=== PATIENT | male | born 1985 | race Caucasian/White ===

== ENCOUNTER 2016-09-17 04:09 | Emergency (ER) | payer OTHER | END 2016-09-17 04:47 | disposition JHC | LOC: CED 04:09 | DX: L03.021 Acute lymphangitis of right finger (principal); B19.20 Unspecified viral hepatitis C without hepatic coma; F17.210 Nicotine dependence, cigarettes, uncomplicated | CPT/HCPCS: 99285 ==

== ENCOUNTER 2016-11-21 23:00 | Inpatient (IN) | payer OTHER ==
--- NOTE | ~2016-11-21 | PN ---
Unit #: [id number] #: [id number] Patient: WIL REYES [id number] [facility] [address] [place] [address] [id number] MR#: [id number] NAME: WIL REYES ROOM: [facility] Age: 31 Sex: M Admission Date: 11/22/2016 : 1985 Attending Physician: Helder Umana M.D. Admitting Physician: Helder Umana M.D. Primary Care Physician: Primary Care Physician Alyssa LYONS PROGRESS NOTES DATE 11/23/2016 DISCUSSION Wil Reyes is a 31-year-old male seen on 11/23/2016. The patient reported feeling sad, depressed, anxious, having a lot of problem with the anxiety. The patient denied any thoughts of harming self or others but seclusive, isolative. Complete review of systems unremarkable. MENTAL STATUS EXAMINATION General appearance, the patient tall well-built. Attention span and concentration fair. Oriented to time, place and person. Mood and affect labile. Speech rapid. Thought process circumstantial. The patient denied any thoughts of harming self or others. Recent and remote memory poor. Insight and judgement poor. DIAGNOSES Major depressive disorder recurrent. ASSESSMENT/PLAN Advise to start the patient on Wellbutrin 150 mg in the morning, Vistaril 50 mg three times a day and Doxepin 50 mg at bedtime. We will closely monitor the patient's mood and behavior. If needed consider further adjustment of medication. Dictated by... Javier Rodriguez/faraz TD: 11/25/2016 00:29 JOB #: [id number] Unit #: [id number] #: [id number] Patient: WIL REYES PROGRESS NOTES Page 1 of 1 X Helder Umana MD PROGRESS NOTE
--- NOTE | ~2016-11-21 | DS ---
Unit #: [id number] #: [id number] Patient: MADDIE BHATTI [id number] [facility] [address] [place] [address] [id number] MR#: [id number] NAME: MADDIE BHATTI ROOM: [facility] Age: 31 Sex: M Admission Date: 11/22/2016 : 1985 Discharge Date: 11/26/2016 Attending Physician: Helder Umana M.D. Primary Care Physician: Primary Care Physician No DISCHARGE SUMMARY REASON FOR ADMISSION Opioid abuse, methamphetamine abuse. DIAGNOSTIC STUDIES LABORATORY RESULTS: Remarkable for amphetamine. HOSPITAL COURSE The patient was admitted to inpatient unit on 11/22/2016 and discharged on 11/26/2016. The patient was treated on the inpatient unit with chemical dependency group, expressive therapy, medication management, psychoeducation, psychotherapy, and structured milieu. The patient responded well with the above modalities of treatment. Subsequently, the patient was discharged with a plan to follow up in outpatient program. DISCHARGE MEDICATIONS None. DISCHARGE DIAGNOSES Psychiatric: Opioid use disorder, moderate, F11.20; amphetamine use disorder, moderate, F15.20; mood disorder, not otherwise specified, F32.9. Secondary diagnosis: Deferred. Medical diagnosis: History of hepatitis C. Stressors: Psychosocial stressors. DISCHARGE INSTRUCTIONS The patient to follow up in outpatient clinic as per mental health social worker. CONDITION ON DISCHARGE The patient was pleasant and cooperative. Denied any psychotic symptom or any suicidal ideation. PROGNOSIS Guarded. DIET AND ACTIVITY As tolerated. Dictated by... Helder Umana M.D. Unit #: [id number] #: [id number] Patient: MADDIE BHATTI SZC/modl TD: 11/27/2016 06:58 JOB #: [id number] DISCHARGE SUMMARY Page 1 of 1 X Helder Umana MD X DISCHARGE SUMMARY
--- NOTE | ~2016-11-21 | PA ---
Unit #: [id number] #: [id number] Patient: WIL REYES [id number] [facility] [place] [address] [id number] I MR#: [id number] NAME: WIL REYES ROOM: 84 Age: 31 Sex: M Admission Date: 11/22/2016 : 1985 Date of Assessment: Attending Physician: Helder Umana M.D. Admitting Physician: Helder Umana M.D. Primary Care Physician: Primary Care Physician No PSYCHIATRIC ASSESSMENT INFORMANTS The patient reliability, fair informant; chart reliability, good. CHIEF COMPLAINT Opioid abuse, amphetamine abuse, depression. HISTORY OF PRESENT ILLNESS Wil Reyes is a 31-year-old male, presented with the above-mentioned complaint. The patient has a history of previous admission at [facility] [place] for detox, [facility]. The patient currently unemployed, poor support system, presented with substance abuse, depression. The patient reported using 1 g of meth IV, also reported using heroin, depressed mood, homelessness, unemployed, strained relationship with the family. The patient currently denied any suicidal or homicidal ideation. Denied any psychotic symptom. Reported having withdrawal symptom, needing help. The patient reported tobacco use, age of onset 23; alcohol, age of onset 14; crack cocaine, age of onset 23; opiate, age of onset 23; amphetamine, age of onset 30. The patient reported the longest period of sobriety 26 months and last period of sobriety 2015. The patient reported history of blackout, history of hepatitis, withdrawal symptom, IV drug use. Currently, reporting abdominal cramping, muscle cramping, diarrhea, depressed mood, poor appetite, sleep problems. PAST PSYCHIATRIC HISTORY Remarkable for history of previous treatment as mentioned above. Last admitted in 06/2016. FAMILY HISTORY AND SOCIAL HISTORY The patient has a poor support system. History of legal charges in the past. No history of any abuse. MEDICAL HISTORY Remarkable for history of hepatitis C. Musculoskeletal; muscle strength and tone, no atrophy or abnormal movement. Gait normal. MEDICATION HISTORY None. ALLERGIES No known drug allergies. SUBSTANCE ABUSE HISTORY Please see above. Unit #: [id number] #: [id number] Patient: WIL REYES REVIEW OF SYSTEMS HEENT: Eyes, clear. Ears, nose, mouth, and throat; clear. CARDIOVASCULAR: Unremarkable. RESPIRATORY: Unremarkable. GI: Unremarkable. : Unremarkable. SKIN: Unremarkable. LYMPH NODE: Unremarkable. NEUROLOGIC: Unremarkable. ENDOCRINE: Unremarkable. HEMATOLOGIC: Unremarkable. ALLERGIC/IMMUNOLOGIC: Unremarkable. MUSCULOSKELETAL: Muscle strength and tone, no atrophy or abnormal movement. Gait normal. MENTAL STATUS EXAMINATION CONSTITUTIONAL: Measurement of vital signs; temperature 98.0, pulse 130, respiratory rate 18, oxygen saturation 98%, blood pressure 100/77, height 6 feet 2 inches, weight 189 pounds. GENERAL APPEARANCE: The patient dressed casually. The patient did not show any facial deformity. MUSCULOSKELETAL: Please see above. PSYCHIATRIC EXAMINATION Description of speech; regular rate, normal volume. Description of thought process, goal directed. Description of association, intact. Description of abnormal psychotic thinking; the patient denied any hallucination or delusions, but mood lability, substance abuse. Description of the patient's judgment, concerning everyday activity, poor. Social situation, poor. Concerning psychiatric condition, poor. Complete mental status examination; oriented in time, place, and person. Recent and remote memory, fair. Attention span and concentration, fair. Language, able to name object and repeat phrases. Fund of knowledge, aware of current event and passive vocabulary intact. Mood and affect, sad and dysphoric. Insight and judgment, fair to poor. ASSETS AND LIABILITIES ASSETS; the patient is articulate, able to take care of his ADL. Liability, history of depression, substance abuse. ADMITTING DIAGNOSES Psychiatric: Opioid use disorder, moderate, F11.20; amphetamine use disorder, moderate, F15.20; mood disorder, not otherwise specified, F32.9. Secondary diagnosis: Deferred. Medical diagnosis: History of hepatitis C. Stressors: Psychosocial stressors. PSYCHIATRIC PLAN 1. Advised to admit the patient on the inpatient unit. Provide safe, supportive, and structured environment. 2. Ordered labs; CBC, CMP, UA, and UDS. 3. Precaution for aggression and detox, monitoring detox protocol. 4. The patient to attend all the programing on the inpatient unit group Unit #: [id number] #: [id number] Patient: WIL REYES therapy, individual therapy, family session if possible, and chemical dependency group. TREATMENT GOAL To attain euthymic mood, gain insight into his problem, and learn coping skills. DISCHARGE PLAN Plan to stabilize the patient and consider followup in outpatient program. ESTIMATED LENGTH OF STAY 5 to 7 days. Dictated by... Javier Rodriguez/sandra TD: 11/23/2016 02:00 JOB #: [id number] PSYCHIATRIC ASSESSMENT Page 1 of 1 X Helder Umana MD PSYCHIATRIC ASSESSMENT
--- NOTE | ~2016-11-21 | PN ---
Unit #: [id number] #: [id number] Patient: WIL REYES [id number] [facility] [address] [place] [address] [id number] I MR#: [id number] NAME: WIL REYES ROOM: [facility] Age: 31 Sex: M Admission Date: 11/22/2016 : 1985 Attending Physician: Helder Umana M.D. Admitting Physician: Helder Umana M.D. Primary Care Physician: Primary Care Physician Alyssa LYONS PROGRESS NOTES DATE 11/24/2016 DISCUSSION Wil Reyes is a 31-year-old male seen on 11/24/2016. The patient interviewed, chart reviewed. Obtained information from nursing staff. The patient compliant and cooperative but still reporting having problem with the anxiety, mood lability, withdrawn, isolative, guarded. Complete review of systems unremarkable. MENTAL STATUS EXAMINATION General appearance, the patient dressed casually. Attention span and concentration fair. Oriented to time, place and person. Mood and affect labile. Speech monotone. Thought process concrete. The patient denied any thoughts of harming self or others but withdrawn, isolative. Recent and remote memory poor. Insight and judgement poor. DIAGNOSES Mood disorder NOS Opioid use disorder severe ASSESSMENT/PLAN Advise to continue with current medication with a plan to increase Seroquel to 100 mg at bedtime. Continue with other medication. If needed consider further adjustment of medication. Dictated by... Javier Rodriguez/faraz TD: 11/25/2016 22:01 JOB #: [id number] Unit #: [id number] #: [id number] Patient: WIL REYES PROGRESS NOTES Page 1 of 1 X Helder Umana MD X PROGRESS NOTE
--- NOTE | ~2016-11-21 | HP ---
Unit #: [id number] #: [id number] Patient: WIL BHATTI [id number] [place] [address] [id number] I MR#: [id number] NAME: WIL BHATTI ROOM: P184 Age: 31 Sex: M Admission Date: 11/22/2016 : 1985 Attending Physician: Helder Umana M.D. Admitting Physician: Helder Umana M.D. Primary Care Physician: Primary Care Physician No HISTORY AND PHYSICAL HISTORY OF PRESENT ILLNESS Wil is a 31-year-old male admitted on 11/22/2016 to [facility] for detox from meth and heroin. PAST MEDICAL HISTORY Hepatitis C. PAST SURGICAL HISTORY None. SOCIAL HISTORY Reports daily use of heroin and meth. Smokes half pack of cigarettes daily. No alcohol use. He does also report occasional crack cocaine use. He is currently single and has been living with his girlfriend, but now has no permanent living place. FAMILY HISTORY Noncontributory. REVIEW OF SYSTEMS CONSTITUTIONAL: No fever or chills. HEENT: Denies any sore throat, ear pain or runny nose. CARDIOVASCULAR: Denies chest pain, irregular heart rhythm or palpitations. CHEST: Denies shortness of breath or cough. No hemoptysis. GASTROINTESTINAL: Denies nausea, vomiting, diarrhea or chronic constipation. ENDOCRINE: Denies history of increased thirst or urination. No recent significant weight loss or gain. GENITOURINARY: Denies dysuria, frequency, or hematuria. SKIN: Denies any rashes. HEMATOLOGIC: Denies history of increased bleeding or bruising. MUSCULOSKELETAL: Denies any hot, swollen joints. No generalized muscle pain. NEUROLOGIC: Denies problems with vision or speech. No frequent, severe headaches. No numbness, tingling or weakness in any extremities. Denies loss of bladder or bowel control. CURRENT MEDICATIONS None. ALLERGIES None. Unit #: [id number] #: [id number] Patient: WIL BHATTI PHYSICAL EXAMINATION GENERAL: Alert, oriented, no acute distress. VITAL SIGNS: Blood pressure 146/102, heart rate 85, respirations 18, and temperature 98.0. HEIGHT: 6 feet 2. WEIGHT: 184 pounds. SKIN: Warm, dry. No rashes or lesions, track mcfarlane, cuts, etc. HEENT: Normocephalic. TMs not viewed. Oronasal passages clear. Conjunctivae clear. PERRLA. EOM is intact. NECK: No lymphadenopathy or thyromegaly. HEART: Regular rate and rhythm. No murmur, gallop, or rub. LUNGS: Clear to auscultation bilaterally. ABDOMEN: Soft, nontender without palpable masses or hepatosplenomegaly. : Not assessed. EXTREMITIES: No evidence of cyanosis, clubbing, or edema. Moves all extremities independently without obvious deficit. NEUROLOGICAL: Grossly within normal limits. Cranial Nerves: II: Visual barney are intact. III, IV AND : Extraocular movements are intact. Pupils are equal, round and reactive to light. V: Facial sensation is grossly normal. VII: Facial movements and expression are normal. VIII: Auditory acuity grossly intact. IX, X: Uvula is midline. Phonation is normal. XI: Patient shrugs shoulders and turns head normally. XII: Tongue protrudes in the midline. Sensory and Motor Function: Sensory and motor sensation is grossly normal. Motor: moves all extremities well. Coordination: Gait is normal. Deep Tendon Reflexes: Intact. IMPRESSION 1. Psychiatric admission. 2. Hepatitis C. RECOMMENDATIONS PSYCHIATRIC: Per psychiatrist. MEDICAL: No contraindication to participate in this facility's activities. MEDICAL PROGNOSIS Good. MEDICAL CONDITION Stable. Dictated by... Brennan Grady TD: 11/22/2016 15:40 JOB #: [id number] Unit #: [id number] #: [id number] Patient: WIL BHATTI HISTORY AND PHYSICAL Page 1 of 1 X PHI MENDEZ APRN X HISTORY AND PHYSICAL
--- NOTE | ~2016-11-21 | PN ---
Unit #: [id number] #: [id number] Patient: WIL REYES [id number] [facility] [address] [place] [address] [id number] I MR#: [id number] NAME: WIL REYES ROOM: [facility] Age: 31 Sex: M Admission Date: 11/22/2016 : 1985 Attending Physician: Helder Umana M.D. Admitting Physician: Helder Umana M.D. Primary Care Physician: Primary Care Physician Alyssa LYONS PROGRESS NOTES DATE 11/25/2016 DISCUSSION Wil Reyes is a 31-year-old male seen on 11/25/2016. Patient interviewed. Chart reviewed. Obtained information from nursing staff. Patient compliant, cooperative. Mood sad, dysphoric, flat affect, guarded. Tolerating medication fairly well but still anxious, nervous, sad, depressed, withdrawn. Complete review of system unremarkable. MENTAL STATUS EXAMINATION General appearance, patient dressed in hospital attire. Attention span, concentration fair. Oriented in place and person. Mood and affect sad, depressed. Speech monotone. Thought process concrete. Patient denied any thoughts of harming self or others but isolative, guarded. Recent and remote memory poor. Insight and judgement poor. DIAGNOSES 1. Opiate use disorder, severe. 2. Amphetamine use disorder, severe. 3. Mood disorder NOS. ASSESSMENT/PLAN Advised to continue with current medication and therapeutic protocol. If needed, consider further adjustment of medication. Dictated by... Javier Rodriguez/bladimir TD: 11/26/2016 18:49 JOB #: [id number] Unit #: [id number] #: [id number] Patient: WIL REYES PROGRESS NOTES Page 1 of 1 X Helder Umana MD PROGRESS NOTE
[2016-11-22 12:19] LABS: URINE APPEARANCE CLEAR; URINE BILIRUBIN NEG (NEG); URINE BLOOD NEG (NEG); URINE COLOR YELLOW; URINE GLUCOSE NEG (NEG); URINE KETONE NEG (NEG); URINE LEUKOCYTE ESTERASE NEG (NEG); URINE NITRATE NEG (NEG); URINE PROTEIN NEG (NEG); URINE SPECIFIC GRAVITY 1.019 (1.003-1.035)
[2016-11-22 12:38] LABS: BASOPHIL# 0.1 X10e3 (0-0.3); EOSINOPHIL# 0.1 X10e3 (0-0.7); EOSINOPHIL% 0.8 % (0.0-7.0); HEMATOCRIT 42.8 % (38.0-50.0); HEMOGLOBIN 14.1 gm/dL (13.0-16.0); LYMPHOCYTE# 2.8 X10e3 (1.0-3.5); LYMPHOCYTE% 24.9 % (17.0-45.0); MEAN CELL VOLUME 86.9 FL (83-96); MEAN CORPUSCULAR HEMOGLOBIN 28.7 PG (28-34); MEAN PLATELET VOLUME 8.7 FL (6.5-11.5); MONOCYTE% 8.7 % (3.0-12.0); NEUTROPHIL# 7.2 X10e3 (1.5-7.1); NEUTROPHIL% 64.6 % (40-75); PLATELET COUNT 300 X10e3 (140-420); RED BLOOD COUNT 4.93 X10e (3.90-5.60); RED CELL DISTRIBUTION WIDTH 13.7 % (11.0-15.5); WHITE BLOOD COUNT 11.1 X10e3 (4.0-10.5)
[2016-11-22 12:40] LABS: DIFF IND YES
[2016-11-22 13:01] LABS: ALBUMIN SERUM 4.1 g/dL (3.5-5.0); BILIRUBIN,TOTAL 0.5 mg/dL (0.2-2.0); BUN/CREATININE RATIO 5.83; CALCIUM SERUM 9.4 mg/dL (8.4-10.2); CREATININE SERUM 1.2 mg/dL (0.6-1.4); GLOM FILT RATE Estimated 81.3 mL/min (>60); POTASSIUM 4.3 mmol/L (3.5-5.1); PROTEIN TOTAL SERUM 7.6 g/dL (6.0-8.3)
[2016-11-22 13:14] LABS: PLATELET ESTIMATE NORMAL (NORMAL); RBC NORMAL YES
[2016-11-22 13:44] LABS: AMPHETAMINE POS (NEG); BARBITURATES NEG (NEG); BENZODIAZEPINES NEG (NEG); COCAINE NEG (NEG); MARIJUANA NEG (NEG); OPIATES NEG (NEG); TRICYCLIC ANTIDEPRESSANTS NEG (NEG); U METHADONE NEG (NEG)
== END 2016-11-26 15:45 | DRG 897 ==
LOC: P1E 11-22 04:07
PROVIDERS: Psychiatry & Neurology Psychiatry
PROC: HZ2ZZZZ Detoxification Services for Substance Abuse Treatment (ICD-10-PCS; principal; 2016-11-22)
DX: F11.20 Opioid dependence, uncomplicated (principal); F15.20 Other stimulant dependence, uncomplicated; F39 Unspecified mood [affective] disorder; B19.20 Unspecified viral hepatitis C without hepatic coma
CPT/HCPCS: 80053; 80307; 81003; 85025; 86592